=== PATIENT | male | born 1995 | race Caucasian/White ===

== ENCOUNTER 2016-12-01 19:04 | Emergency (ER) | payer OTHER ==
[2016-12-01 19:13] VITALS: RESP 18; TEMP 98.2; O2SAT 97
--- NOTE | 2016-12-01 19:22 | EDPHY ---
H & P Time Seen by Provider: 12/01/16 19:14 HPI/ROS: CHIEF COMPLAINT: Crush injury right pinky finger 4 days ago HISTORY OF PRESENT ILLNESS: 21-year-old [id number] , immunocompetent, male with up-to-date tetanus states that 4 days ago he was bowling and his thumb got stuck in the ball causing him to fall forward with bowling ball in his hand and crushed his right 5th digit sustaining crush injury and laceration. He has cleansed the area and has kept dressed for few days. PI PHYSICAL EXAM (Prior to examination, patient consented to physical exam, hands were washed and my usual and customary physical exam procedures followed) 1) GENERAL: Well-developed, well-nourished, alert and oriented. Appears to be in no acute distress. 2) HEAD: Normocephalic 3) HEENT: sclera anicteric 4) LUNGS: Breathing comfortably. 5) SKIN: on the palmar aspect of the right pinky finger he has multiple irregular lacerations which are granulating. No signs of infection. Negative kanavel sign. 6) MUSCULOSKELETAL: he does have tenderness to the 5th digit. Unable to completely assess flexor and extensor function secondary to pain. 7) NEUROLOGIC: Two-point discrimination and sensation intact Smoking Status: Never smoked Constitutional: Initial Vital Signs Temperature (C) 36.8 C 12/01/16 19:09 Heart Rate 59 L 12/01/16 19:09 Respiratory Rate 18 12/01/16 19:09 Blood Pressure 122/59 H 12/01/16 19:09 O2 Sat (%) 97 12/01/16 19:09 O2 Delivery Mode Room Air Allergies/Adverse Reactions: No Known Allergies Allergy (Unverified 12/01/16 19:10) Home Medications: Medication Instructions Recorded Cephalexin [Keflex] 500 mg PO TID 7 Days cap 12/01/16 MDM/Departure - MDM Imaging Results: Images reviewed by myself Medications Given: Discontinued Medications Cephalexin HCl (Keflex) 500 mg PO EDNOW ONE PRN Reason: Protocol Stop: 12/01/16 19:28 Last Admin: 12/01/16 19:30 Dose: 500 mg ED Course/Re-evaluation: This patient has been re-evaluated with serial examinations. Wound has been cleansed. Wound to be allowed to heal via secondary intention as it is already 4-day-old. He has negative kanavel and no signs cellulitis or infectious tenosynovitis at this time however he had informed that he is at risk for infection. He is started on prophylactic antibiotics and I stressed follow up with Hand on-call hand surgery this week (today is Thursday). He has been informed that due to his delay in seeking medical attention he may sustain permanent and chronic dysfunction of this finger. Care of patient under supervision of secondary supervising physician Dr Guerrier . - Depart Disposition: Home, Routine, Self-Care Clinical Impression: Crushing injury of right little finger, initial encounter Condition: Good Instructions: Crush Injury (ED) Additional Instructions: Return to the ER if you develop redness, swelling, discharge, warmth to the wound, red streaks going up your arm , or any other symptoms that concern you. Prescriptions: Cephalexin [Keflex] 500 mg PO TID 7 Days cap Referrals: Dequan Tejeda MD [Medical Doctor] - 1-2 days without fail (Dr Tejeda is an orthopedic/hand surgeon)
[2016-12-01] MEDS ORDERED: CEPHALEXIN 500 MG CAP PO ONE (19:27)
[2016-12-01 20:43] VITALS: BP 139/82; PULSE 57
== END 2016-12-01 20:43 | disposition home or self-care (01) ==
DX: S67.196A Crushing injury of right little finger, initial encounter (principal); W23.1XXA Caught, crushed, jammed, or pinched between stationary objects, initial encounter; Y93.54 Activity, bowling